=== PATIENT | male | born 1970 | race Two or more races ===

== ENCOUNTER → 2017-07-27 | Outpatient (CLI) | payer BC | LOC: CIMAGING 13:44 | PROVIDERS: ATTEND Family Medicine | DX: M51.37 Other intervertebral disc degeneration, lumbosacral region (principal); M25.552 Pain in left hip | CPT/HCPCS: 72100-PO; 73502-PO ==

== ENCOUNTER → 2018-08-30 | Outpatient (CLI) | payer BC ==
[~2018-08-30] MED LIST: GADOBUTROL 10 ML VIAL IVP ONE
== END ==
LOC: FIMAGING 06:37
PROVIDERS: ATTEND Physician Assistant Surgical
DX: M51.17 Intervertebral disc disorders with radiculopathy, lumbosacral region (principal); N20.0 Calculus of kidney; M51.37 Other intervertebral disc degeneration, lumbosacral region
CPT/HCPCS: A9585

== ENCOUNTER → 2018-09-28 | Outpatient (CLI) | payer OTHER | LOC: CIMAGING 10:22 ==